=== PATIENT | female | born 1985 | race Hispanic/Latino ===

== ENCOUNTER 2018-06-04 23:13 | Emergency (ER) | payer OTHER ==
[2018-06-04 23:23] VITALS: BP 117/69; PULSE 70
[2018-06-05 00:15] LABS: BASO # 0.1 K/uL (0.0-0.2); BASO % 0.7 % (0.0-2.0); EOS # 0.1 K/uL (0.0-0.7); EOS % 0.7 % (0.0-4.0); LYMPH # 3.9 K/uL (1.0-4.3); MEAN CELL VOLUME 94.7 fL (81.0-99.0); MEAN CORPUSCULAR HEMOGLOBIN 32.7 pg (27.0-31.0); MEAN CORPUSCULAR HGB CONC 34.5 g/dL (33.0-37.0); MEAN PLATELET VOLUME 8.9 fL (7.2-11.7); MONO # 0.8 K/uL (0.0-0.8); MONO % 8.8 % (0.0-10.0); NEUT % 45.8 % (50.0-75.0); RBC 3.97 Mil/uL (3.80-5.20); RED CELL DISTRIBUTION WIDTH 12.2 % (11.5-14.5); WHITE BLOOD COUNT 8.8 K/uL (4.8-10.8)
--- NOTE | 2018-06-05 00:29 | C.PDOC ---
History Of Present Illness 33 year old female presents to the ER after having a panic attack at home with sudden onset of vision changes, headache, sense of impending doom, circumoral paresthesia, paresthesias to the bilateral hands, weakness to the bilateral legs, near syncope, and hyperventilating. Patient has had multiple prior episodes at home, has extensive Hx of depression related issues with mother. Patient reports high exercise tolerance, does yoga and peloton bike 5-6 days a week and follows strict diet regiment. She has seen a psychologist for vague anxiety and depression issues but has never discussed her childhood issues with her mother. Symptoms resolved IMAGER. Time Seen by Provider: 06/04/18 23:32 Chief Complaint (Nursing): Headache History Per: Patient History/Exam Limitations: no limitations Onset/Duration Of Symptoms: Mins Current Symptoms Are (Timing): Gone Suicide/Self Injury Attempted (Context): None Associated Symptoms: Anxiety, Depression Involuntary Hold By: None Recent travel outside of the [place]: No Past Medical History Reviewed: Historical Data, Nursing Documentation, Vital Signs Vital Signs: Last Vital Signs Temp 98.2 F 06/04/18 23:21 Pulse 70 06/04/18 23:21 Resp 20 06/04/18 23:21 BP 117/69 06/04/18 23:21 Pulse Ox 97 06/04/18 23:21 - Medical History PMH: Hypothyroidism Family History: States: Unknown Family Hx - Social History Hx Alcohol Use: Yes Hx Substance Use: No - Immunization History Hx Tetanus Toxoid Vaccination: No Hx Influenza Vaccination: No Hx Pneumococcal Vaccination: No Review Of Systems Constitutional: Negative for: Fever, Chills Cardiovascular: Negative for: Chest Pain, Palpitations Respiratory: Negative for: Cough, Shortness of Breath Gastrointestinal: Negative for: Nausea, Vomiting Psych: Positive for: Anxiety, Depression, Other (Panic attack) Physical Exam - Physical Exam Appears: Non-toxic, Other (Thin white athletic female) Skin: Normal Color, Warm, Dry Head: Atraumatic, Normacephalic Eye(s): bilateral: Normal Inspection Oral Mucosa: Moist Neck: Normal, Supple Chest: Symmetrical, No Tenderness Cardiovascular: Rhythm Regular Respiratory: Normal Breath Sounds, No Rales, No Rhonchi, No Wheezing Gastrointestinal/Abdominal: Soft, No Tenderness Back: No CVA Tenderness Neurological/Psych: Oriented x3, Normal Speech ED Course And Treatment - Laboratory Results Result Diagrams: 06/05/18 00:13 06/05/18 00:13 Lab Interpretation: Normal (POC Glu94) ECG: Interpreted By Me ECG Rhythm: Sinus Rhythm ECG Interpretation: Normal Rate From EC O2 Sat by Pulse Oximetry: 97 (Room air) Pulse Ox Interpretation: Normal Medical Decision Making Medical Decision Making: typical panic attack now with education, pt relates few prior same, usually while seated on sofa @ home. Extensive anxiety/depression hx + unresolved psych issues regarding pt's mother during adolescence. thin, athletic but low susp of anorexia permissive weight gain suggested Extensively educated to understand s/s of anxiety/panic disorder f/u with psych/clinical psychologist explained and educated defer further w/u w informed consent. pt "sure" she's not today benign belly. Disposition Doctor Will See Patient In The: Office Counseled Patient/Family Regarding: Studies Performed, Diagnosis - Disposition Referrals: [facility] [Outside] [facility] [Outside] [facility] [Outside] [facility] [Outside] [facility] [Outside] Disposition: HOME/ ROUTINE Disposition Time: 00:29 Condition: GOOD Additional Instructions: study and recognize signs and symptoms of panic You do NOT need to present to ED for future panic attacks. outpatient follow-up with Clinical Psychologist specializing in your concerns Seek resources through [facility] or [facility] referrals Specific treatment outlines and goals Interview at least 3 Clinicians. Continued exercise and permissive weight gain Instructions: Anxiety, Adult (DC), Panic Disorder (DC) Forms: [facility] ([place]) - Clinical Impression Clinical Impression: Panic attack - Scribe Statement The provider has reviewed the documentation as recorded by the Scribmariama Mcdonald All medical record entries made by the Scribe were at my direction and personally dictated by me. I have reviewed the chart and agree that the record accurately reflects my personal performance of the history, physical exam, medical decision making, and the department course for this patient. I have also personally directed, reviewed, and agree with the discharge instructions and disposition.
[2018-06-05 01:01] LABS: ALB/GLOB RATIO 1.6 (1.0-2.1); ALBUMIN 4.7 g/dL (3.5-5.0); ALT/SGPT 29 U/L (9-52); AST/SGOT 35 U/L (14-36); BLOOD UREA NITROGEN 14 mg/dL (7-17); CALCIUM 9.3 mg/dl (8.6-10.4); GFR NON-AFRICAN AMERICAN 58
[2018-06-05 01:04] VITALS: RESP 18; TEMP 98.6
[2018-06-05 03:46] VITALS: O2SAT 97
== END 2018-06-05 01:04 | disposition home or self-care (01) ==
LOC: C.ER 23:13
DX: F41.0 Panic disorder [episodic paroxysmal anxiety] (principal)